=== PATIENT | male | born 1975 | race Asian ===

== ENCOUNTER → 2018-04-05 | Outpatient (CLI) | payer BC, MEDICARE | LOC: ROC 03-25 14:00 | PROVIDERS: ATTEND Radiology Radiation Oncology | DX: Z02.9 Encounter for administrative examinations, unspecified (principal) ==

== ENCOUNTER → 2018-05-03 | Outpatient (CLI) | payer OTHER | END | disposition home or self-care (01) | LOC: ROC 07:45 | PROVIDERS: ATTEND Radiology Radiation Oncology | DX: Z02.9 Encounter for administrative examinations, unspecified (principal) ==